=== PATIENT | male | born 1975 | race Hispanic/Latino ===

== ENCOUNTER 2021-04-24 07:03 | Observation (INO) | payer BC ==
[2021-04-19 09:58] LABS: Absolute Lymphocytes (CBC) 1.8 K/uL (0.7-4.9); Basophils % 0.5 % (0-1.3); Hematocrit 43.6 % (39.6-49.0); Lymphocytes % 26.8 % (15.3-44.8); MPV 9.4 fL (7.6-11.3); RBC Red Blood Cell Count 4.82 M/uL (4.33-5.43)
--- NOTE | 2021-04-19 10:09 | RAD REPORT ---
EXAM DESCRIPTION: RAD - Chest Pa And Lat (2 Views) - 04/19/2021 9:56 am CLINICAL HISTORY: Pre Op hernia surgery COMPARISON: No comparisons FINDINGS: Lines: None. Lungs: No evidence of edema or pneumonia. Pleural: No significant pleural effusions or pneumothorax. Cardiac: The heart size is within normal limits. Bones: No acute fractures. Other: IMPRESSION: No acute cardiopulmonary disease.
[2021-04-19 10:15] LABS: BUN Blood Urea Nitrogen 9 mg/dL (7-18); Bicarbonate 27 mmol/L (21-32); Glucose Level 112 mg/dL (74-106); Potassium 4.1 mmol/L (3.5-5.1); Sodium Level 143 mmol/L (136-145)
--- NOTE | 2021-04-19 10:40 | EKG ---
Test Date: 2021-04-19 Test Time: 08:35:17 Tractor Operator Laser Leveling: ANNIKA MEASUREMENT RESULTS: Intervals: Rate: 56 IL: 134 QRSD: 86 QT: 398 QTc: 384 [place]: P: 36 IL: 134 QRS: 33 T: 15 INTERPRETIVE STATEMENTS: Sinus bradycardia Otherwise normal ECG Compared to ECG 01/22/2016 16:15:04 Sinus rhythm no longer present Electronically Signed On 04-19-21 10:39:33 CDT by Raimundo Davalos
[2021-04-24] MEDS ORDERED: Ringers Lactate 1,000 ML IV ONE ×2 (08:18→12:49)
[2021-04-24] MEDS ORDERED: MIDAZOLAM HCL 2 MG/2 ML INJ ONE (09:12)
[2021-04-24] MEDS ORDERED: ROCURONIUM 50 MG/5 ML VIAL IV ONE (09:12)
[2021-04-24] MEDS ORDERED: LIDOCAINE 1% MPF 5 ML VIAL ONE (09:12)
[2021-04-24] MEDS ORDERED: propofoL 200 MG/20 ML VIAL IV ONE (09:12)
[2021-04-24] MEDS ORDERED: FENTANYL CITR 100 MCG/2 ML ONE ×3 (09:12→11:18)
[2021-04-24] MEDS ORDERED: CEFAZOLIN/NS 1gm 1 GM/50 ML BAG ONE (09:16)
[2021-04-24] MEDS ORDERED: NS 0.9% VIAL 10 ML ONE (09:28)
[2021-04-24] MEDS ORDERED: KETOROLAC 30 MG/ML INJ ONE (09:43)
[2021-04-24] MEDS ORDERED: ONDANSETRON 4 MG/2 ML VIAL ONE ×2 (09:49→12:06)
[2021-04-24] MEDS ORDERED: GLYCOPYRROLATE 0.2 MG/ML SYR ONE ×2 (10:04→11:41)
[2021-04-24] MEDS ORDERED: NEOSTIGMINE 1 MG/ML -5 ML ONE (10:05)
[2021-04-24] MEDS ORDERED: EPHEDRINE SULF 50 MG/ML VIAL ONE (11:42)
[2021-04-24] MEDS ORDERED: Mastisol Adhesive Liq ONE (11:43)
[2021-04-24] MEDS: HYDROMORPHONE HCL 1 MG/ML INJ ONE ×5 (11:50→14:15)
[2021-04-24] MEDS ORDERED: ONDANSETRON 4 MG/2 ML VIAL IV PRN (11:54)
--- NOTE | 2021-04-24 12:06 | P.BOP ---
Preoperative diagnosis: abd pain, large incisional ventral hernia Postoperative diagnosis: extensve intra abd adhesions, abdominal wall seroma Primary procedure: Diagnostic laparoscopy, Lap extensive CHEN, Exploratory laparotomy Secondary procedure: Repair of large incisional ventral hernia, evacuation of abd wall seroma Business Solutions Director: BRITNEY VILA (LATHE PULLER) Estimated blood loss: <50cc Specimen: hernia sac Findings: see dicta Anesthesia: General Complications: None Drain(s): SUMA drain Transferred to: Recovery Room Condition: Fair
[2021-04-24] MEDS: HYDROMORPHONE HCL 1 MG/ML INJ IV PRN ×2 (12:38→19:52)
[2021-04-24] MEDS ORDERED: HYDROMORPHONE HCL 1 MG/ML INJ ONE ×2 (13:01→14:18)
[2021-04-24] MEDS: HYDROCODONE/APAP 5/325 MG TAB PO PRN ×2 (15:00→18:48)
[2021-04-24] MEDS ORDERED: HYDROCODONE/APAP 5/325 MG TAB ONE (15:23)
[2021-04-24 18:17] VITALS: BMI 27.0
[2021-04-24] MEDS: METRONIDAZOLE 500mg IVPB 500 MG/100 ML BAG IV SCH ×2 (18:45→23:59)
[2021-04-24] MEDS: NA CHLORIDE 0.9% 1,000 ML IV SCH (18:45)
[2021-04-24] MEDS: Ciprofloxacin 200mg IV 200 MG/100 ML IV.SOLN. IV SCH (19:56)
[2021-04-24] MEDS: SODIUM CHLORIDE 0.9% 10ML INJ IV PRN (19:56)
[2021-04-24 20:24] VITALS: O2SAT 98
[2021-04-25] MEDS: HYDROMORPHONE HCL 1 MG/ML INJ IV PRN ×4 (00:01→12:25)
[2021-04-25] MEDS: HYDROCODONE/APAP 5/325 MG TAB PO PRN ×2 (03:18→14:55)
[2021-04-25] MEDS: METRONIDAZOLE 500mg IVPB 500 MG/100 ML BAG IV SCH (05:47)
[2021-04-25] MEDS: NA CHLORIDE 0.9% 1,000 ML IV SCH ×2 (05:47→15:00)
[2021-04-25 06:14] LABS: Absolute Lymphocytes (CBC) 0.7 K/uL (0.7-4.9); Basophils % 0.2 % (0-1.3); Hematocrit 40.5 % (39.6-49.0); Lymphocytes % 6.5 % (15.3-44.8); MPV 9.8 fL (7.6-11.3); RBC Red Blood Cell Count 4.45 M/uL (4.33-5.43)
[2021-04-25 06:33] LABS: BUN Blood Urea Nitrogen 7 mg/dL (7-18); Bicarbonate 30 mmol/L (21-32); Glucose Level 121 mg/dL (74-106); Potassium 3.4 mmol/L (3.5-5.1); Sodium Level 140 mmol/L (136-145)
[2021-04-25] MEDS: Ciprofloxacin 200mg IV 200 MG/100 ML IV.SOLN. IV SCH (08:10)
[2021-04-25] MEDS: SODIUM CHLORIDE 0.9% 10ML INJ IV PRN (08:10)
[2021-04-25 08:14] LABS: Blood Morphology Comment NOT SEEN (NOT SEEN); Platelet Estimate ADEQ
[2021-04-25 08:50] VITALS: TEMP 97.7
[2021-04-25] MEDS ORDERED: TAMSULOSIN 0.4 MG SR CAP PO SCH (09:00)
[2021-04-25] MEDS ORDERED: PANTOPRAZOLE 40 MG INJ IVP SCH (09:00)
[2021-04-25 12:40] VITALS: BP 118/73
--- NOTE | 2021-04-25 15:16 | P.DS ---
Admission Date: 04/24/21 Discharge Date: 04/25/21 Disposition: ROUTINE DISCHARGE Discharge Condition: GOOD Vital Signs/Physical Exam: Temp Pulse Resp BP Pulse Ox 97.7 F 84 16 118/73 96 04/25/21 12:00 04/25/21 12:00 04/25/21 14:55 04/25/21 12:00 04/25/21 14:55 General: Alert, Oriented x3, Cooperative HEENT: Atraumatic, PERRLA Neck: Supple Cardiovascular: No edema Gastrointestinal: Soft and benign, Other (SUMA clear) Musculoskeletal: No clubbing, No swelling, No contractures, No erythema Integumentary: No rashes, No cyanosis Neurological: Normal speech Laboratory Data at Discharge: WBC 10.10 K/uL (4.3-10.9) D 04/25/21 05:35 Hgb 13.6 g/dL (13.6-17.9) 04/25/21 05:35 Hct 40.5 % (39.6-49.0) 04/25/21 05:35 Plt Count 208 K/uL (152-406) 04/25/21 05:35 Sodium 140 mmol/L (136-145) 04/25/21 05:35 Potassium 3.4 mmol/L (3.5-5.1) L 04/25/21 05:35 BUN 7 mg/dL (7-18) 04/25/21 05:35 Creatinine 0.70 mg/dL (0.55-1.3) 04/25/21 05:35 Glucose 121 mg/dL (74-106) H 04/25/21 05:35 Home Medications: Cyanocobalamin [Vitamin B-12] 1,000 mcg PO DAILY 04/19/21 Multivit-Min/Folic/Vit K/Lycop [Men's Multivitamin Tablet] 1 each PO DAILY 04/19/21 Hydrocodone 5/APAP 325 [[place] 5/325*] 1 tab PO Q4H PRN #30 tab 04/25/21 Sulfamethoxazole/Trimethoprim [Bactrim Ds Tablet] 1 each PO BID #10 tablet 04/25/21 New Medications: Sulfamethoxazole/Trimethoprim [Bactrim Ds Tablet] 1 each PO BID #10 tablet Hydrocodone 5/APAP 325 [[place] 5/325*] 1 tab PO Q4H PRN #30 tab PRN Reason: Pain Scale 5-7 (Moderate) Physician Discharge Instructions: Kwp area dry for 48h then may remove outer dressing and shower. Abdominal binder while out of bed Diet: AHA Activity: No lifting more than 10 lbs Followup: Yun Kemp MD [Primary Care Provider] - Siddharth Knott MD [ACTIVE - CAN ADMIT] - 04/29/21
--- NOTE | 2021-05-27 12:21 | OP ---
Date of Procedure: 04/24/2021 Surgeon: Siddharth Knott MD Cert Pharmacy Tech: AUDREY Anderson. Preoperative Diagnoses: Abdominal pain, large incisional ventral hernia. Postoperative Diagnoses: Abdominal pain, large incisional ventral hernia plus extensive intraabdomin al adhesions, abdominal wall seroma. Procedures: Diagnostic laparoscopy, laparoscopic extensive lysis of adhesions, exploratory laparotom y, repair of a large incisional ventral hernia, evacuation of abdominal wall seroma. Specimen: Hernia sac. Findings: The patient has a large seroma just on top of his hernia. He has previous open incision i n that region, previous surgical intervention. The fluid from the seroma has particular smell to it, does not like GI, but I am not sure that seroma is completely clean or not. For that reason, I elías lisa this at that moment was unsafe to do a mesh that we have available at this time. So, we did not put the mesh. He has extensive intraabdominal adhesions that have to be removed laparoscopically bef ore the laparotomy could be done. The hernia is large. Fascial edges are not viable and not able to be cleaned laparoscopically, so we have to do laparotomy to clean the fascial edges and bring this t ogether. Anesthesia: General plus local. Indication: This is the case of a male, who comes to us after having an incisional ventral large her gurjit in the upper abdomen. The patient wanted that repaired. It is giving him pain and discomfort. The benefits, alternatives, and risks of laparoscopic possible open repair of incisional ventral manny ia with possible mesh fully discussed with the patient, which include, but not limited to infection, bleeding, damage to adjacent structures, anesthesia complication, recurrence, NH, and even . He also understands this may not relieve any symptoms. He might need more than one surgical interventi on. He understands we may encounter intraabdominal adhesions from his previous surgeries and patholo gy. He may have to stay overnight depends on the findings. He understands that even though we fix h is hernia, he has to help us with no heavy lifting and losing some weight. He understood also the pr os and cons of mesh placing since we were not sure we are going to use or not. Procedure In Detail: The patient was brought to the operating room, placed in supine position. Anes thesia was done without complication. Abdominal area was prepped and draped in usual sterile fashion . We proceeded to find a place safe that we can put a Amarjit trocar. We made an incision, found the fascia, entered the abdomen under direct visualization, and put a Amarjit trocar. We noticed extensi ve intraabdominal adhesions present. For that reason, we had to put some extra trocars under direct visualization and needed some ligatures prior to doing lysis of adhesions in a sequential fashion. M ost of it was just omentum. There were some intestines underneath, but no connection directly to the hernia itself. We spent half of the time just doing lysis of adhesions there. When we removed all those adhesions, we were able to visualize the defect that is large. We cannot approximate this safe ly in a way that we will repeat laparoscopically. So we are going to proceed to do a combination of lysis of adhesions and also we went to assist in the closure, but we have to open the inci greer to clean the fascial edges. It was hard for me at this moment to determine where the fascial go od edges start and when the bad edges end. At that moment, I then removed the trocars temporally and then made an incision from the previous incision. When we went there, the patient has a seroma. Th ere was some liquid inside. It is hard to figure out. It looked old. It looks it has been there fo r some time. The abdominal cavity is not violated. I did not see any fistula in that region. May b e from previous repair in that area does not seem to be acute, but due to there is no pus, there is n o GI content, it is mainly clear. Due to the content, we irrigated the area profusely and then after that, I removed the hernia sac and found the fascial edges. I had to do this through a laparotomy s bettye this was the only way I can address that issue due to the size of the hernia. Once we have open ed the entire incision and placed the fascial edges, then we proceeded to once again examine the area of the fascial edges and we were able to approximate the defects with a heavy #1 nylon in interrupte d [id number] fashion. I am not completely convinced that it is safe to put a mesh at least one we have available at this moment because of risks of contamination. I was able to find enough fascia to be able to approximate this and close this laparotomy and hernia in a way that we can use in figu re-of-eight fashion #1 nylon. Thus, with it, we did a significant amount of stitches putting in figu re-in-eight fashion all over until we have the entire incision approximated. We held that together, looked like it is closing without any major clerical dentist assistant. So at that moment, I proceeded to tie each 1 individually. The defect looks intact. We obtained a pneumoperitoneum once again, put the cameras. Then, we are still then after that we see that there is no air coming through it. The ar ea of the lysis of adhesions looks intact, so we proceeded to remove the trocars under direct visuali zation. Deflated pneumoperitoneum. Regarding the seroma, we irrigated the area profusely and procee ded to approximate the space the best we can with chromic stitches, but first we put a SUMA drain in that region to exit out. We are trying to remove that fluid the best we can in that region to avoid noted seroma forming there. Then, we approximated the skin and SUMA was secured in place with 3-0 nylon and connected to bulb suction. The patient tolerated the procedure well. The patient was sent to recovery in stable condition. Sponge count and instrument counts correct. DIAMOND/JOSE LUIS Voice ID: [id number] Report ID: [id number]
--- OUTSIDE RECORDS SUMMARY | 2021-05-30 05:23 | XMS REPORT | Continuity of Care Document ---
:1975 Author Organization [facility] t Address [address] [place] [address] Care Team Providers Name Role Phone Unavailable Unavailable Unavailable Payers Payer Name Policy Type Policy Number Effective Date Expiration Date S ource Problems This patient has no known problems. Allergies, Adverse Reactions, Alerts Allergy Allergy Status Severity Reaction(s) Onset Inactive Treating Comm ents Source Name Type Date Date Clinician No Known DA Active U [facility] All[facility]ie 09-11 [facility] 00:00: [address] Medications This patient has no known medications. Procedures This patient has no known procedures. Encounters Start End Encounter Admission Attending Care Care Encounter Source Date/Time Date/Time Type Type Clinicians Facility Department ID 2020-12-25 2020-12-25 Outpatient E [facility] MED [id number] [facility] 02:25:00 02:25:00 2020-06-01 2020-06-[address] 07:15:00 07:15:00 saad Ramos [facility] Results Test Description Test Time Test Comments Results Result Comments Source - XR UGI W/O KUB 2019-04-13 Patient Name: 12:56:00 CAREY LOPEZ Unit No: [id number] EXAMS: CPT CODE: [id number] XR UGI W/O KUB [id number] EXAM: Upper GI post gastric bypass. HISTORY: Follow-up gastric band R 16 Fluoroscopy time 0.4 minutes, 5 images COMPARISON: None available. FINDINGS: Thin barium was given by mouth and fluoroscopic images were obtained. A gastric band is noted in appropriate position. Normal esophageal emptying. No evidence of gastric reflux.. There is no evidence of obstruction or extravasation. Barium flows freely into the jejunum. IMPRESSION: Unremarkable exam at 1257 Reported and signed by: Juan Antonio Cedeño M.D. CC: Technologist: RT Edson (R) Transcrpt Date/Tm/Trnsp: 04/13/2019 ([id number]) [id number] Orig Print D/T: S: 04/13/2019 ([id number]) [facility] NAME: CAREY LOPEZ [id number] PHYS: [place] [address] : 1975 AGE: 43 SEX: M LOC: [facility] PHONE #: [phone] EXAM DATE: 04/13/2019 STATUS: REG CLI FAX #: [phone] RADIOLOGY NO: PAGE 1 Signed Report
== END 2021-04-25 15:55 | disposition home or self-care (01) ==
LOC: OR 07:03 → 2ND 16:38
PROVIDERS: ADMIT Surgery; ATTEND Surgery
PROC: 0DNW4ZZ Release Peritoneum, Percutaneous Endoscopic Approach (ICD-10-PCS; 2021-04-24)
PROC: 0WQF0ZZ Repair Abdominal Wall, Open Approach (ICD-10-PCS; principal; 2021-04-24 08:30)
DX: K43.2 Incisional hernia without obstruction or gangrene (principal); Z53.31 Laparoscopic surgical procedure converted to open procedure; K66.0 Peritoneal adhesions (postprocedural) (postinfection)
CPT/HCPCS: 49560; 49329; 93005; 85025 ×2; 80048 ×2; 36415 ×2; 88302; 71046; 94010; U0002; J2704; C9113; J2250; J3010 ×3; J0744 ×2; J1170 ×8; J2710; J0690; J7120 ×2; J7030 ×2; J2405 ×3; G0379; G0378 ×2